=== PATIENT | female | born 1945 | race Caucasian/White ===

== ENCOUNTER 2016-07-04 09:12 | Emergency (ER) | payer MEDICARE, MEDICAID ==
[2016-07-04] MEDS ORDERED: IOPAMIDOL 300 (61%) 150 ML VIAL IV ONE (09:13)
[2016-07-04 09:55] LABS: URINE BILIRUBIN NEGATIVE (NEGATIVE); URINE BLOOD NEGATIVE (NEGATIVE); URINE GLUCOSE (UA) NEGATIVE (NEGATIVE); URINE LEUKOCYTE ESTERASE NEGATIVE (NEGATIVE); URINE NITRITE NEGATIVE (NEGATIVE); URINE PROTEIN NEGATIVE (NEGATIVE); URINE UROBILINOGEN NORMAL (0-1 mg/dl)
[2016-07-04 09:56] LABS: URINE APPEARANCE CLEAR; URINE COLOR AMBER
[2016-07-04 10:20] LABS: ABSOLUTE NEUTROPHIL COUNT 8.3 K/mm3 (1.8-7.7); BASO % 0.4 % (0.2-1.0); EOS # 0.2 (0.0-0.5); EOS % 1.9 % (0.9-2.9); HEMATOCRIT 40.6 % (37.0-47.0); HEMOGLOBIN 13.4 gm/l (12.0-16.0); IMM NEUT% 0.3 % (0-1); LYMPH # 1.9 (1.0-4.8); LYMPH % 16.8 % (15-45); MEAN CELL VOLUME 95.3 fl (81.0-99.0); MEAN CORPUSCULAR HEMOGLOBIN 31.5 pg (27.0-31.0); MONO # 0.7 (0.0-0.8); MONO % 6.3 % (4-12); NEUT % 74.3 % (43-75); PLATELET COUNT 275 K/mm3 (130-400); RED CELL DISTRIBUTION WIDTH 15.5 % (11.5-14.5)
[2016-07-04] MEDS ORDERED: ONDANSETRON 4 MG/2ML 2 ML VIAL ONE (10:21)
[2016-07-04] MEDS ORDERED: LACTATED RINGERS 1,000 ML ONE (10:21)
[2016-07-04 10:44] LABS: ALB/GLOB RATIO 1.2 (>1.0); ALBUMIN 3.8 gm/dL (3.5-5.7); CALCIUM 9.5 mg/dL (8.6-10.3)
--- NOTE | 2016-07-04 11:49 | CT ---
ABD/PELVIS W/ CON COMPARISON: CT abdomen and pelvis with contrast 08/15/2015 HISTORY: Left lower quadrant pain. Past history of diverticulitis. Technique: Intravenous injection 125 mL Isovue 370. Using a [employer] [address] scanner, images were obtained from the diaphragm to the floor the pelvis. An automated dose reduction technique was used to minimize patient radiation dose. Dose information: CTDIvol (mGy): 29.10 DLP(mGycm): 1550.80 FINDINGS: Lung bases: Normal. Inferior mediastinum and heart: Normal. Liver: Normal. Gallbladder: Removed. Bile ducts: Normal. Pancreas: Normal. Spleen: Normal. Adrenal glands: Normal. Kidneys: Normal right kidney. 1 cm cyst in the upper pole left kidney. No hydronephrosis. Ureters: Normal Urinary bladder: Normal. Uterus and adnexa: Normal. Blood vessels: Atherosclerosis of the aorta and the common iliac arteries. Lymph nodes: Normal Stomach: Normal Duodenum: Normal Small intestine: Normal Appendix: Not visible. Possibly removed. Colon: In the proximal sigmoid colon, there is wall thickening and inflammation surrounding a diverticulum. No free air. No abscess. Abdominal wall and supporting musculature: Normal Bones: Degenerative changes in the spine. No lytic or blastic lesions. IMPRESSION: 1. Diverticulitis of the sigmoid colon. No perforation. No abscess. 2. Incidental findings include cholecystectomy, 1 cm cyst in the upper pole left kidney, atherosclerosis of the aorta and common iliac arteries, nonvisualized appendix, and degenerative changes in the spine. The results were discussed with Tonia De Los Santos M.D. 07/04/1999 1711:46
== END 2016-07-04 12:32 | disposition home or self-care (01) ==
LOC: ED 09:12
DX: K57.92 Diverticulitis of intestine, part unspecified, without perforation or abscess without bleeding (principal); I10 Essential (primary) hypertension
CPT/HCPCS: 85025; 80053; 81003; 74177; 99284 ×2; 96374; J2405; J7120; Q9967

== ENCOUNTER 2016-09-19 15:52 | Emergency (ER) | payer MEDICARE, MEDICAID ==
[2016-09-19] MEDS ORDERED: LACTATED RINGERS 1,000 ML ONE (16:43)
[2016-09-19 17:07] LABS: ABSOLUTE NEUTROPHIL COUNT 4.6 K/mm3 (1.8-7.7); BASO % 0.5 % (0.2-1.0); EOS # 0.2 (0.0-0.5); EOS % 2.5 % (0.9-2.9); HEMATOCRIT 41.1 % (37.0-47.0); HEMOGLOBIN 13.6 gm/l (12.0-16.0); IMM NEUT% 0.3 % (0-1); LYMPH # 2.3 (1.0-4.8); LYMPH % 30.9 % (15-45); MEAN CELL VOLUME 95.6 fl (81.0-99.0); MEAN CORPUSCULAR HEMOGLOBIN 31.6 pg (27.0-31.0); MEAN CORPUSCULAR HGB CONC 33.1 g/dl (33.0-37.0); MEAN PLATELET VOLUME 10.2 fl (7.4-10.4); MONO # 0.4 (0.0-0.8); MONO % 5.4 % (4-12); NEUT % 60.4 % (43-75); PLATELET COUNT 281 K/mm3 (130-400); RED CELL DISTRIBUTION WIDTH 14.7 % (11.5-14.5)
[2016-09-19 17:17] LABS: CALCIUM 9.1 mg/dL (8.6-10.3)
[2016-09-19 18:21] LABS: SPECIFIC GRAVITY 1.015 (1.001-1.030); URINE BILIRUBIN NEGATIVE (NEGATIVE); URINE BLOOD NEGATIVE (NEGATIVE); URINE GLUCOSE (UA) NEGATIVE (NEGATIVE); URINE LEUKOCYTE ESTERASE NEGATIVE (NEGATIVE); URINE NITRITE NEGATIVE (NEGATIVE); URINE PROTEIN NEGATIVE (NEGATIVE); URINE UROBILINOGEN NORMAL (0-1 mg/dl)
[2016-09-19 18:22] LABS: URINE APPEARANCE CLEAR; URINE COLOR YELLOW
[2016-09-19] MEDS ORDERED: ACETAMINOPHEN 500 MG TABLET ONE (18:25)
== END 2016-09-19 19:33 | disposition home or self-care (01) ==
LOC: ED 15:52
DX: R51 Headache (principal); I10 Essential (primary) hypertension; I49.9 Cardiac arrhythmia, unspecified; G61.0 Guillain-Barre syndrome
CPT/HCPCS: 85025; 80048; 81003; 99283 ×2; 96360; A9270; J7120